=== PATIENT | male | born 1955 | race Caucasian/White ===

== ENCOUNTER 2021-09-02 06:44 | Day surgery (SDC) | payer MEDICAID ==
[~2021-09-02] VITALS: Ht 170.2 cm; Wt 81.6 kg
[2021-09-02] MEDS ORDERED: fentaNYL citrate 0.05 MG/ML VIAL ONE (08:43)
[2021-09-02] MEDS ORDERED: MIDAZOLAM 5 MG/5 ML VIAL ONE (08:43)
[2021-09-02] MEDS ORDERED: LIDOCAINE 2% 100 MG/5 ML UJET TP ONE (08:43)
[2021-09-02] MEDS ORDERED: MIDAZOLAM 2 MG/2 ML VIAL IVP ONE (10:25)
[2021-09-02] MEDS ORDERED: fentaNYL citrate 0.05 MG/ML VIAL IVP ONE (10:25)
== END 2021-09-02 12:23 | disposition home or self-care (01) ==
LOC: MDS 06:44 → MMU 06:46 → MDS 12:23
PROVIDERS: ATTEND Internal Medicine Gastroenterology
DX: Z12.11 Encounter for screening for malignant neoplasm of colon (principal); K21.9 Gastro-esophageal reflux disease without esophagitis; K57.30 Diverticulosis of large intestine without perforation or abscess without bleeding; K29.70 Gastritis, unspecified, without bleeding; E78.5 Hyperlipidemia, unspecified; Z79.899 Other long term (current) drug therapy; Z20.822 Contact with and (suspected) exposure to COVID-19
CPT/HCPCS: 36415; 43239; 45378; 86677; 87426; J2250; J3010